=== PATIENT | male | born 1935 | race Caucasian/White ===

== ENCOUNTER → 2017-04-11 | Outpatient (CLI) | payer MEDICARE | END | disposition home or self-care (01) | LOC: CFH 09:09 | PROVIDERS: ATTEND Physician Assistant Medical | DX: R91.8 Other nonspecific abnormal finding of lung field (principal); J98.4 Other disorders of lung; J92.9 Pleural plaque without asbestos; J43.9 Emphysema, unspecified | CPT/HCPCS: 71250 ==

== ENCOUNTER → 2017-05-05 | Outpatient (CLI) | payer MEDICARE ==
[~2017-05-05] MED LIST: REGADENOSON 0.4 MG/5 ML SYRINGE ONE
== END | disposition home or self-care (01) ==
LOC: CFH 07:50
PROVIDERS: ATTEND Physician Assistant Medical
DX: I08.0 Rheumatic disorders of both mitral and aortic valves (principal); I77.819 Aortic ectasia, unspecified site; I48.91 Unspecified atrial fibrillation; I10 Essential (primary) hypertension; E11.9 Type 2 diabetes mellitus without complications; Z87.891 Personal history of nicotine dependence
CPT/HCPCS: 93306; J2785

== ENCOUNTER 2017-06-23 06:32 | Observation (INO) | payer MEDICARE ==
[2017-06-20 09:48] VITALS: BP 146/70
[2017-06-20 10:24] LABS: BLOOD UREA NITROGEN 24 mg/dL (7-18)
[2017-06-20 10:31] LABS: HEMATOCRIT 39.8 % (39.2-51.8); HEMOGLOBIN 13.2 g/dL (13.7-18.0); WHITE BLOOD COUNT 6.2 x10^3/uL (3.4-10)
[~2017-06-23] VITALS: Ht 185.4 cm; Wt 96.1 kg
[~2017-06-23 06:32] MED LIST changes: +ALPH300C PO; +AMIO200T42 PO; +APIX5TAB PO; +ATOR20TA9 PO; +DOXA2TAB9 PO; +ERGO500017 PO; +FINA5TAB4 PO; +LEVO100T5 PO; +LEVO150T5 PO; +METF10002 PO; -REGADENOSON 0.4 MG/5 ML SYRINGE ONE; +VALS160T3 PO
[2017-06-23] MEDS: SODIUM CHLORIDE 0.9% 1,000 ML IV SCH ×2 (06:46→14:46)
[2017-06-23] MEDS ORDERED: CEFAZOLIN PMX 1GM/50ML 50 ML IVPB ONE (07:00)
[2017-06-23] MEDS ORDERED: METF500T4 PO (07:05)
[2017-06-23] MEDS ORDERED: CEFAZOLIN PMX 1GM/50ML 0 ML ONE (07:40)
[2017-06-23] MEDS ORDERED: CEFAZOLIN 1,000 MG ONE ×2 (07:40→07:57)
[2017-06-23] MEDS ORDERED: LIDOCAINE 2%, 20ML ONE (07:40)
[2017-06-23] MEDS ORDERED: FENTANYL PF 250 MCG/5ML ONE (07:48)
[2017-06-23] MEDS ORDERED: PROPOFOL 10 MG/ML, 20ML ONE (07:57)
[2017-06-23] MEDS: CEFAZOLIN PMX 1GM/50ML 50 ML IVPB SCH ×2 (09:00→17:08)
[2017-06-23] MEDS ORDERED: HYDROcodone/APAP 5/325 TABLET PO PRN (09:00)
[2017-06-23] MEDS ORDERED: ACETAMINOPHEN 650 MG/20.3 ML UDC ONE (09:24)
[2017-06-23] MEDS ORDERED: HYDROmorphone 1 MG/ML, 1ML IV PRN (09:30)
[2017-06-23] MEDS ORDERED: MIDAZOLAM 1 MG/ML, 5ML IV PRN (09:30)
[2017-06-23] MEDS ORDERED: FENTANYL PF 100 MCG/2ML IV PRN (09:30)
[2017-06-23] MEDS ORDERED: ONDANSETRON 2MG/ML, 2ML IVPush PRN (09:30)
[2017-06-23] MEDS ORDERED: OXYcodone 5 MG/5 ML ORAL.SOL UDC PO PRN (09:30)
[2017-06-23] MEDS ORDERED: ACETAMINOPHEN 325 MG TABLET PO PRN (09:30)
[2017-06-23 09:42] VITALS: BP 168/95
[2017-06-23] MEDS: SODIUM CHLORIDE FLUSH 10ML SYR IVF SCH ×2 (09:57→20:48)
[2017-06-23 12:34] VITALS: BP 148/85
[2017-06-23] MEDS: VALSARTAN 160 MG TABLET PO SCH (12:34)
[2017-06-23 14:43] VITALS: BP 139/80
[2017-06-23] MEDS: metFORMIN 500 MG TABLET PO SCH (17:08)
[2017-06-23 19:50] VITALS: BP 146/78
[2017-06-23] MEDS ORDERED: DOXAZOSIN 2MG TABLET PO SCH ×2 (21:00)
[2017-06-23] MEDS ORDERED: ATORVASTATIN 20 MG TABLET PO SCH ×2 (21:00)
[2017-06-24] MEDS: CEFAZOLIN PMX 1GM/50ML 50 ML IVPB SCH ×2 (01:12→10:16)
[2017-06-24 01:30] VITALS: BP 146/74
[2017-06-24] MEDS ORDERED: LEVOTHYROXINE 100 MCG TABLET PO SCH (06:00)
[2017-06-24 08:08] VITALS: BP 101/62
[2017-06-24] MEDS: metFORMIN 500 MG TABLET PO SCH (08:14)
[2017-06-24] MEDS: SODIUM CHLORIDE FLUSH 10ML SYR IVF SCH (08:14)
[2017-06-24] MEDS: VALSARTAN 160 MG TABLET PO SCH (08:15)
[2017-06-24] MEDS ORDERED: FINASTERIDE 5 MG TABLET PO SCH ×2 (09:00)
[2017-06-24] MEDS ORDERED: APIXABAN 5 MG TABLET PO SCH (09:00)
[2017-06-24] MEDS ORDERED: AMIODARONE 200 MG TABLET PO SCH ×2 (09:00)
[2017-06-29] MEDS ORDERED: LEVOTHYROXINE 150 MCG TABLET PO SCH (06:00)
[2017-06-29] MEDS ORDERED: ERGOCALCIFEROL 50,000 UNIT CAPSULE PO SCH (09:00)
== END 2017-06-24 11:10 | disposition home or self-care (01) ==
LOC: CACL 06:32 → 5SO 08:55 → DCLOUNGE 06-24 10:55
PROVIDERS: ADMIT Internal Medicine Cardiovascular Disease; ATTEND Internal Medicine Cardiovascular Disease
DX: I49.5 Sick sinus syndrome (principal); I48.91 Unspecified atrial fibrillation; E78.5 Hyperlipidemia, unspecified; E03.9 Hypothyroidism, unspecified; E11.22 Type 2 diabetes mellitus with diabetic chronic kidney disease; I12.9 Hypertensive chronic kidney disease with stage 1 through stage 4 chronic kidney disease, or unspecified chronic kidney disease; N18.9 Chronic kidney disease, unspecified; Z87.891 Personal history of nicotine dependence
CPT/HCPCS: 33208; 36415; 71010; 71020; 80048; 82962; 85025; 93005; 96365; 96375; C1779; C1785; C1892; G0378; J0690; J2704; J3010; J3490

== ENCOUNTER 2019-10-04 10:09 | Day surgery (SDC) | payer MEDICARE ==
[~2019-10-04] VITALS: Ht 185.4 cm; Wt 90.0 kg
[~2019-10-04 10:09] MED LIST changes: +ATOR20TA37 PO; -ATOR20TA9 PO; +METF500T17 PO
[2019-10-04] MEDS ORDERED: SODIUM CHLORIDE 0.9% 1,000 ML IV SCH (11:00)
[2019-10-04 11:06] VITALS: BP 146/83
[2019-10-04 11:16] LABS: MEAN CORPUSCULAR HEMOGLOBIN 33.7 pg (27.5-34.5); MEAN CORPUSCULAR HGB CONC 33.1 g/dL (33.2-36.2); MEAN CORPUSCULAR VOLUME 101.9 fL (81-97); MEAN PLATELET VOLUME 9.1 fL (7.4-10.4); PLATELET COUNT 157 x10^3/uL (130-400); RED BLOOD COUNT 3.77 x10^6/uL (4.38-5.82); RED CELL DISTRIBUTION WIDTH 13.3 % (9.4-14.8)
[2019-10-04] MEDS ORDERED: LOSA100T14 PO (11:17)
[2019-10-04] MEDS ORDERED: LINA5TAB PO (11:17)
[2019-10-04 11:25] LABS: ANION GAP 6 mmol/L (5-15); CALCIUM 8.5 mg/dL (8.5-10.1); CHLORIDE 110 mmol/L (98-107); CREATININE 1.31 mg/dL (0.7-1.3)
[2019-10-04] MEDS ORDERED: HOLD MEDICATION MC PRN (11:30)
[2019-10-04] MEDS ORDERED: MIDAZOLAM 1 MG/ML, 2ML ONE (12:06)
[2019-10-04] MEDS ORDERED: VERAPAMIL 2.5 MG/ML, 2ML ONE (12:06)
[2019-10-04] MEDS ORDERED: FENTANYL PF 100 MCG/2ML ONE (12:06)
[2019-10-04] MEDS ORDERED: LIDOCAINE-MPF 1%, 5ML ONE (12:07)
[2019-10-04] MEDS ORDERED: NITROGLYCERIN 5 MG/ML, 10ML ONE (12:07)
[2019-10-04] MEDS ORDERED: HEPARIN 1,000 UNITS/ML, 10ML ONE (12:07)
== END 2019-10-04 14:37 | disposition home or self-care (01) ==
LOC: CACL 10:09 → ORIP 11:02 → UNDOADMOB 11:02 → CACL 14:37
PROVIDERS: ATTEND Internal Medicine Cardiovascular Disease
DX: R94.39 Abnormal result of other cardiovascular function study (principal); I25.10 Atherosclerotic heart disease of native coronary artery without angina pectoris; I47.1 Supraventricular tachycardia; I44.30 Unspecified atrioventricular block; E11.22 Type 2 diabetes mellitus with diabetic chronic kidney disease; I12.9 Hypertensive chronic kidney disease with stage 1 through stage 4 chronic kidney disease, or unspecified chronic kidney disease; N18.9 Chronic kidney disease, unspecified; E03.9 Hypothyroidism, unspecified; E78.5 Hyperlipidemia, unspecified; I48.91 Unspecified atrial fibrillation; E66.3 Overweight; Z68.26 Body mass index [BMI] 26.0-26.9, adult; Z72.89 Other problems related to lifestyle; Z79.01 Long term (current) use of anticoagulants; Z79.84 Long term (current) use of oral hypoglycemic drugs; Z79.890 Hormone replacement therapy; Z79.899 Other long term (current) drug therapy; Z87.891 Personal history of nicotine dependence; Z95.0 Presence of cardiac pacemaker
CPT/HCPCS: 36415; 80048; 85027; 93458; 99156; C1769; C1894; J1644; J2250; J3010; Q9967